=== PATIENT | female | born 1940 | race Caucasian/White ===

== ENCOUNTER 2022-04-26 09:09 | Emergency (ER) | payer MEDICARE, OTHER ==
[~2022-04-26 09:09] MED LIST: AMBIEN10 MG PO; AMPICILLIN TRI500 M1 PO; ANASTROZOLE1 MG PO; ARMOUR THYROID120 MG PO; ASPIRIN EC81 MG PO; ATIVAN0.5 MG PO; BACTRIM DS TAB1 EACH PO; BETAPACE80 MG PO; BIOTIN1000 MCG PO; CEFDINIR300 MG PO; CENTRUM ADULTS1 EACH PO; CENTRUM SILVER1 EAC1 PO; CIPRO500 M1 PO; CIPRO500 MG PO; COZAAR 25MG TAB25 MG PO; COZAAR50 MG PO; DITROPAN5 MG PO; ELAVIL10 MG PO; EVISTA60 MG PO; FEOSOL325 MG PO; FISH OIL 1,2001 EACH PO; HYOSCYAMINE0.375 MG PO; IMODIUM2 MG PO; LACTINEX1 EACH PO; LEVBID0.375 MG PO; LIPITOR10 MG PO; LIPITOR20 MG PO; LOPRESSOR25 MG PO; MACROBID100 MG PO; METRONIDAZOLE500 MG PO; MYRBETRIQ25 MG PO; NORCO 5-325 TA1 EACH PO; OS-CAL500 MG PO; PANTOPRAZOLE SO40 MG PO; PERCOCET 5-3251 EACH PO; PRINIVIL10 MG PO; PROTONIX 40MG T40 MG PO; PROZAC20 MG PO; PYRIDIUM100 MG PO; PYRIDIUM200 MG PO; RESTORIL15 MG PO; SYMBICORT 80-10.2 GM INH; SYNTHROID125 MCG PO; SYNTHROID25 MCG PO; TENORMIN25 MG PO; TOVIAZ8 MG PO; TYLENOL #31 EACH PO; TYLENOL #4 PO; XARELTO20 MG PO; ZANTAC150 MG PO; ZOFRAN8 MG PO; ZOLPIDEM 10MG T10 MG PO
[2022-04-26 12:27] LABS: BASOPHIL 0.4 % (0-2); EOSINOPHIL 0.5 % (0-7); HCT 43.6 % (37.0-47.0); HGB 14.2 g/dl (12.5-16.0); LYMPHOCYTE 8.3 % (15-48); MCH 30.3 pg (25.0-31.0); MCHC 32.6 g/dL (32.0-36.0); MONOCYTE 4.4 % (0-12); MPV 8.9 fL (6.0-9.5); NEUTROPHIL 85.5 % (41-80); NRBC 0; PLT 226 K/uL (150-400); RBC 4.69 M/uL (4.20-5.40); RDW 15.8 % (11.5-14.0); WBC 13.1 K/uL (4.0-10.5)
[2022-04-26 13:33] LABS: CREATININE 1.78 mg/dL (0.51-0.95); POTASSIUM 4.4 mmol/L (3.5-5.1)
== END 2022-04-26 13:18 | disposition other institution (70) ==
LOC: FER 09:09
PROVIDERS: Emergency Medicine
DX: S32.011A Stable burst fracture of first lumbar vertebra, initial encounter for closed fracture (principal); J44.9 Chronic obstructive pulmonary disease, unspecified; W01.190A Fall on same level from slipping, tripping and stumbling with subsequent striking against furniture, initial encounter; Y92.002 Bathroom of unspecified non-institutional (private) residence as the place of occurrence of the external cause
CPT/HCPCS: 36415; 70450; 71045; 72125; 72128; 72131; 72170; 80048; 85025; J2270; J2405; J7030